=== PATIENT | male | born 1985 | race Caucasian/White ===

== ENCOUNTER 2020-03-12 09:30 | Emergency (ER) | payer SELFPAY ==
[~2020-03-12] VITALS: Ht 165 cm; Wt 92.8 kg
[2020-03-12 10:18] VITALS: BP 157/110
[2020-03-12] MEDS ORDERED: TETRACAINE 0.5% OPHTH SOLN 4 ML BTL (SINGLE DOSE ONLY) OU ONE (10:30)
[2020-03-12] MEDS ORDERED: NS 100 ML (IVPB) BAG IV ONE ×2 (10:30→10:45)
[2020-03-12] MEDS ORDERED: HOLD METFORMIN - RECEIVED CONTRAST 20 ML VIAL IV SCH ×2 (10:30→10:45)
[2020-03-12] MEDS ORDERED: IOHEXOL 350 MG/ML 100 ML (OMNIPAQUE 350) VIAL IV ONE ×2 (10:30→10:45)
[2020-03-12 10:31] LABS: BASOPHILS % (AUTO) 1 % (0-10); EOSINOPHILS # (AUTO) 0.1 10^3/uL (0.0-0.3); EOSINOPHILS % (AUTO) 1 % (0-10); HEMATOCRIT 46 % (40-54); HEMOGLOBIN 16.7 G/DL (13.3-17.7); LYMPHOCYTES # (AUTO) 2.7 X 10^3 (1.0-4.0); LYMPHOCYTES % (AUTO) 34 % (12-44); MEAN CORPUSCULAR HEMOGLOBIN 31 PG (25-34); MEAN CORPUSCULAR HGB CONC 37 G/DL (32-36); MEAN CORPUSCULAR VOLUME 84 FL (80-99); MEAN PLATELET VOLUME 10.5 FL (7.4-10.4); MONOCYTES # (AUTO) 0.6 X 10^3 (0.0-1.0); MONOCYTES % (AUTO) 7 % (0-12); NEUTROPHILS # (AUTO) 4.6 X 10^3 (1.8-7.8); NEUTROPHILS % (AUTO) 58 % (42-75); PLATELET COUNT 264 10^3/uL (130-400); WHITE BLOOD COUNT 7.9 10^3/uL (4.3-11.0)
[2020-03-12 10:34] LABS: ALBUMIN 4.6 GM/DL (3.2-4.5); CHLORIDE 99 MMOL/L (98-107); SODIUM 135 MMOL/L (135-145)
--- NOTE | 2020-03-12 10:34 | ED Neurological Problem ---
General Chief Complaint: General Problems/Pain Stated Complaint: LT EYE PAIN/ HIGH BLOOD PRESSURE Nursing Triage Note: AMB TO ROOM FROM [facility] WITH REPORTS THAT 1 MONTH AGO WAS LIFTING AND NOTICED L EYE GO BLURRY WITH REDNESS. IT WENT AWAY AND LAST THRUSDAY VISION IN L EYE COULD SEE SHAPES . WAS SENT BY [facility] FOR EYE AND B/P Nursing Sepsis Screen: No Definite Risk Source: patient Exam Limitations: no limitations History of Present Illness Date Seen by Provider: Mar 12, 2020 Time Seen by Provider: 10:09 Initial Comments Patient presents to ER by private conveyance from [facility] urgent care where he was seen for left eye blindness. He says this happened once before a month ago and lasted about 15 days and then spontaneously resolved. , 4 days ago he was lifting something heavy about 100 pounds and he lost the vision in his left eye again. It has not resolved yet. He can see light and are conveyed blurry shapes in his left eye. Right eye is normal. He does not use corrective lenses. He does not follow with a primary care doctor for any reason. He does not have any known medical history. No significant family medical history. He does not take any medicines except for an occasional Tylenol he says. He denies recreational drugs or head trauma. [facility] urgent care called ahead and said he had a significantly elevated blood pressure 200/120. Allergies and Home Medications Allergies Coded Allergies: No Known Drug Allergies (Unverified , 03/12/20) Patient Home Medication List Home Medication List Reviewed: Yes Review of Systems Review of Systems Constitutional: No chills, No diaphoresis Eyes: See HPI, Blindness; Denies Blurred Vision Ears, Nose, Mouth, Throat: denies ear pain, denies ear discharge Respiratory: No cough, No short of breath Cardiovascular: No edema, No Hx of Intervention, No syncope Gastrointestinal: No abdominal pain, No nausea, No vomiting Genitourinary: No discharge, No dysuria Musculoskeletal: No back pain, No joint pain All Other Systems Reviewed Negative Unless Noted: Yes Past Xirjhij-Mmwizx-Opycma Hx Patient Social History Alcohol Use: Denies Use Recreational Drug Use: No Smoking Status: Never a Smoker Recent Foreign Travel: No Contact w/Someone Who Travel: No Recent Infectious Disease Expo: No Past Medical History Surgeries: No Respiratory: No Cardiac: No Neurological: No Genitourinary: No Gastrointestinal: No Musculoskeletal: No Endocrine: No HEENT: No Cancer: No Psychosocial: No Integumentary: No Physical Exam Vital Signs Vital Signs - First Documented 03/12/20 03/12/20 09:38 10:18 Temp 36.7 Pulse 100 Resp 18 B/P (MAP) 200/120 (146) Pulse Ox 97 O2 Delivery Room Air Capillary Refill : Less Than 3 Seconds Height, Weight, BMI Height: '" Weight: lbs. oz. kg; 34.00 BMI Method: General Appearance: WD/WN, no apparent distress HEENT: pharynx normal, other (pupil 3 mm on the left sluggish and 4 mm brisk on the right. Normal right funduscopic exam. 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, no motor/sensory deficits, alert, normal mood/affect, oriented x 3 Crainal Nerves: normal hearing, normal speech, PERRL Coordination/Gait: normal finger to nose, normal gait Motor/Sensory: no motor deficit, no sensory deficit Skin: normal color, warm/dry Progress/Results/Core Measures Results/Orders Lab Results Laboratory Tests Test 03/12/20 09:54 Range/Units White Blood Count 7.9 4.3-11.0 10^3/uL Red Blood Count 5.43 4.35-5.85 10^6/uL Hemoglobin 16.7 13.3-17.7 G/DL Hematocrit 46 40-54 % Mean Corpuscular Volume 84 80-99 FL Mean Corpuscular Hemoglobin 31 25-34 PG Mean Corpuscular Hemoglobin Concent 37 H 32-36 G/DL Red Cell Distribution Width 12.9 10.0-14.5 % Platelet Count 264 130-400 10^3/uL Mean Platelet Volume 10.5 H 7.4-10.4 FL Neutrophils (%) (Auto) 58 42-75 % Lymphocytes (%) (Auto) 34 12-44 % Monocytes (%) (Auto) 7 0-12 % Eosinophils (%) (Auto) 1 0-10 % Basophils (%) (Auto) 1 0-10 % Neutrophils # (Auto) 4.6 1.8-7.8 X 10^3 Lymphocytes # (Auto) 2.7 1.0-4.0 X 10^3 Monocytes # (Auto) 0.6 0.0-1.0 X 10^3 Eosinophils # (Auto) 0.1 0.0-0.3 10^3/uL Basophils # (Auto) 0.0 0.0-0.1 10^3/uL Prothrombin Time 13.3 12.2-14.7 SEC INR Comment 1.0 0.8-1.4 Activated Partial Thromboplast Time 28 24-35 SEC D-Dimer 0.37 0.00-0.49 UG/ML Sodium Level 135 135-145 MMOL/L Potassium Level 4.0 3.6-5.0 MMOL/L Chloride Level 99 98-107 MMOL/L Carbon Dioxide Level 25 21-32 MMOL/L Anion Gap 11 5-14 MMOL/L Blood Urea Nitrogen 8 7-18 MG/DL Creatinine 0.80 0.60-1.30 MG/DL Estimat Glomerular Filtration Rate > 60 BUN/Creatinine Ratio 10 Glucose Level 292 H 70-105 MG/DL Calcium Level 9.0 8.5-10.1 MG/DL Corrected Calcium 8.5-10.1 MG/DL Total Bilirubin 0.8 0.1-1.0 MG/DL Aspartate Amino Transf (AST/SGOT) 24 5-34 U/L Alanine Aminotransferase (ALT/SGPT) 39 0-55 U/L Alkaline Phosphatase 122 40-136 U/L Troponin I < 0.028 <0.028 NG/ML Total Protein 8.2 6.4-8.2 GM/DL Albumin 4.6 H 3.2-4.5 GM/DL My Orders Orders - DAYRON MARTÍNEZ Cbc With Automated Diff (03/12/20 10:25) Protime With Inr (03/12/20 10:25) Partial Thromboplastin Time (03/12/20 10:25) Comprehensive Metabolic Panel (03/12/20 10:25) Fibrin Degradation Products (03/12/20 10:25) Troponin I (03/12/20 10:25) Chest 1 View, Ap/Pa Only (03/12/20 10:25) Ekg Tracing (03/12/20 10:25) Nothing By Mouth (03/12/20 Lunch) Ed Iv/Invasive Line Start (03/12/20 10:25) Vital Signs Stroke Patient Q15M (03/12/20 10:25) O2 (03/12/20 10:25) Monitor-Rhythm Ecg Trace Only (03/12/20 10:25) Dysphagia Screening Tool (03/12/20 10:25) Ct Angio Head/Neck (03/12/20 10:25) Tetracaine 0.5% Ophth Anita Sdv (Tetracai (03/12/20 10:30) Iohexol Injection (Omnipaque 350 Mg/Ml 1 (03/12/20 10:30) Received Contrast (Hold Metformin- Contr (03/12/20 10:30) Ns (Ivpb) (Sodium Chloride 0.9% Ivpb Bag (03/12/20 10:30) Iohexol Injection (Omnipaque 350 Mg/Ml 1 (03/12/20 10:45) Received Contrast (Hold Metformin- Contr (03/12/20 10:45) Sodium Chloride Flush (Catheter Flush Sy (03/12/20 10:45) Ns (Ivpb) (Sodium Chloride 0.9% Ivpb Bag (03/12/20 10:45) Medications Given in ED Current Medications Medications Dose Ordered Sig/Sherine Route Start Time Stop Time Status Last Admin Dose Admin Iohexol 75 ml ONCE ONCE IV 03/12/20 10:45 03/12/20 10:46 DC 03/12/20 11:21 75 ML Sodium Chloride 10 ml NEEDED PRN IV 03/12/20 10:45 03/12/20 11:21 10 ML Sodium Chloride 100 ml ONCE ONCE IV 03/12/20 10:45 03/12/20 10:46 DC 03/12/20 11:21 80 ML Tetracaine HCl 4 ml ONCE ONCE OU 03/12/20 10:30 03/12/20 10:31 DC 03/12/20 10:40 4 ML Vital Signs/I&O 03/12/20 03/12/20 09:38 10:18 Temp 36.7 Pulse 100 83 Resp 18 18 B/P (MAP) 200/120 (146) 157/110 (126) Pulse Ox 97 O2 Delivery Room Air Room Air Blood Pressure Mean: 126 Progress Progress Note #1: Time: 10:33 Progress Note 1 month of waxing and waning visual acuity on the left eye. We'll get a selling eye test for visual acuity. Plan to do tomography. We'll get a CT angiogram of the head and neck to rule out stroke, tumor etc. Suspect with his hypertension he could have caused a retinal attachment. If we can rule out these other issues in the ER then we can consult with ophthalmology. Progress Note #2: Time: 12:24 Progress Note Plan to give him 5 mg Levemir times one and put him on amlodipine for his hypertension. He has an appointment in the morning with Dr. Mansfield at 9:30. Initial ECG Impression Date: Mar 12, 2020 Initial ECG Impression Time: 10:30 Initial ECG Rate: 82 Initial ECG Rhythm: Normal Sinus Initial ECG Intervals: Normal Initial ECG Impression: Normal, Nonspecific Changes Initial ECG Comparisson: No Previous ECG Available Comment Normal sinus rhythm with physiologic ST elevation but no clinically relevant ST elevation or depression. Diagnostic Imaging Diagonstic Imaging: Xray Plain Films/CT/US/NM/MRI: chest (1v) Comments NAME: ZOEYNAN A.C. Moore REC#: [id number] PT STATUS: REG ER : 1985 PHYSICIAN: DAYRON MARTÍNEZ MD ADMIT DATE: 03/12/20/ER Draft Date of Exam:03/12/20 CHEST 1 VIEW, AP/PA ONLY INDICATION: High blood pressure. TIME OF EXAM: 11:29 AM No prior studies are available for comparison. FINDINGS: The heart size is normal. The pulmonary vascularity is unremarkable. The lungs are clear. No infiltrate, effusion or pneumothorax is detected. IMPRESSION: No acute cardiopulmonary process is detected. Dictated on workstation # [id number] Dict: 03/12/20 1130 Trans: 03/12/20 1132 [id number] Interpreted by: SHAMEKA MAXWELL MD Electronically signed by: Reviewed: Reviewed by Me Diagonstic Imaging: CT Plain Films/CT/US/NM/MRI: head (neck angiogram) Comments [facility] [place] NAME: NAN GREER A.C. Moore REC#: [id number] PT STATUS: REG ER : 1985 PHYSICIAN: DAYRON MARTÍNEZ MD ADMIT DATE: 03/12/20/ER Draft Date of Exam:03/12/20 CT ANGIO HEAD/NECK CLINICAL INDICATION: Patient has high blood pressure, left eye red, and vision issues. Patient has some headaches. EXAMS: 1. Head CT with and without IV contrast. Auto Exposure Controls were utilized during the CT exam to meet ALARA standards for radiation dose reduction. 2. CT angiogram of the head and neck performed with 100 cc of Omnipaque 350 IV contrast. Sagittal and coronal MIP reformations were created for better visualization of vascular anatomy. COMPARISON: None. FINDINGS: HEAD CT: There is no evidence of acute cerebral infarct, intracranial hemorrhage, or gross mass effect. There is no abnormal IV contrast enhancement. There is a linear area of thickening with similar density of chew matter extending across the right frontal lobe region of the centrum semiovale toward the right lateral ventricle. It is possible that this may represent heterotopic chew matter versus closed-loop schizencephaly. Otherwise, the remainder of the brain parenchyma is unremarkable. The brain parenchymal volume appears appropriate for patient's age. There is normal chew-white matter distinction. There is no significant midline shift or herniation. There is no evidence of hydrocephalus. The basal cisterns are unremarkable. The skull, extracranial soft tissue, and orbits are unremarkable. There is minimal mucosal thickening involving both maxillary sinuses and ethmoid sinus. The temporal bones show no significant abnormality. CT ANGIOGRAM: There is dense contrast seen within the left subclavian vein, innominate vein, and superior vena cava which causes streak artifact obscuring portions of the aortic arch and proximal great vessels. There is motion artifact from patient body habitus with streak artifact slightly obscuring portions of the bilateral common carotid arteries. The visualized portions of the bilateral subclavian artery, brachiocephalic artery, bilateral common carotid arteries, bilateral cervical ICA, and bilateral ECA are unremarkable as visualized. The bilateral cervical vertebral arteries are patent. A slightly dominant left cervical vertebral artery is seen. The bilateral PICAs, intradural vertebral arteries, basilar artery, bilateral superior cerebellar arteries, and bilateral TAILING HAND are patent. A slightly small in caliber post PICA intradural right vertebral artery is seen. There is a small area of vascular fenestration of the proximal basilar artery. The petrous, cavernous, and supraclinoid ICA are patent. The bilateral ACAs and their distal branches are patent. The anterior communicating artery is patent. The bilateral MCAs and their distal branches are patent. The dural venous sinuses are patent. The neck soft tissue structures are unremarkable. The visualized upper lung bills are clear. The cervical spine shows no significant abnormality. IMPRESSION: 1. There is no evidence of an acute intracranial process. There is no abnormal IV contrast enhancement. 2. Unremarkable CT angiogram of the [place] of [place] and neck vascular structures. 3. There is a linear area of density, similar to chew matter, involving the right frontal lobe centrum semiovale region extending toward the right lateral ventricle. These findings are most likely congenital and may represent cleft-like cortical dysplasia, heterotopic chew matter, versus closed lip schizencephaly. If this is not a known finding, then a nonemergent MRI of the brain with and without contrast (seizure protocol for high-resolution imaging) is suggested for further evaluation. This finding may be incidental if the patient has no history of seizures. 4. Mild paranasal sinus disease; otherwise, unremarkable CT scan of the brain. Dictated on workstation # [id number] Dict: 03/12/20 1129 Trans: 03/12/20 1153 [id number] Interpreted by: SILVERIO LINK MD Electronically signed by: Reviewed: Reviewed by Me Consults : Consulting Physician: ALVARO MANSFIELD OD Consults Notes Discussed the case with Dr. Mansfield, and he says the patient will need an extensive workup and will likely see him at 9:30 in the morning in his office. Give the patient the clinic number case he has any problems overnight but call the on-call doctor. Departure Impression Primary Impression: Hypertensive retinopathy of left eye Additional Impressions: Hypertension Qualified Codes: I10 - Essential (primary) hypertension Diabetes type 2, uncontrolled Qualified Codes: E11.65 - Type 2 diabetes mellitus with hyperglycemia Disposition: 01 HOME, SELF-CARE Condition: Stable Departure-Patient Inst. Decision time for Depature: 12:20 Referrals: [facility] [place] ALVARO MANSFIELD OD Patient Instructions: High Blood Pressure (DC), Diabetic Retinopathy Add. Discharge Instructions: Tomorrow morning at [address] Mansfield's office. After that call for an appointment with a primary care doctor to follow up your high blood pressure and diabetes. Take the amlodipine one tablet daily for high blood pressure. If you have any problems throughout the night you can call Dr. Mansfield's office and their voicemail will direct you who to call. Alternatively you may return to the ER. All discharge instructions reviewed with patient and/or family. Voiced understanding. Scripts Amlodipine Besylate (Amlodipine Besylate) 5 Mg Tablet 5 MG PO DAILY for 14 Days, #14 TAB 0 Refills Prov: DAYRON MARTÍNEZ 03/12/20 Work/School Note: Work Release Form Date Seen in the Emergency Department: Mar 12, 2020 Return to Work: Mar 14, 2020 Restrictions: No Restrictions Copy Copies To 1: [facility]/[place]; ALVARO MANSFIELD OD, TITUS J Mar 12, 2020 10:34
[2020-03-12 10:36] LABS: GLUCOSE 292 MG/DL (70-105)
[2020-03-12 10:37] LABS: TOTAL PROTEIN 8.2 GM/DL (6.4-8.2)
[2020-03-12 10:38] LABS: CARBON DIOXIDE 25 MMOL/L (21-32)
[2020-03-12 10:39] LABS: BILIRUBIN,TOTAL 0.8 MG/DL (0.1-1.0); FIBRIN DEGRADATION PRODUCTS 0.37 UG/ML (0.00-0.49); PROTHROMBIN TIME PATIENT 13.3 SEC (12.2-14.7)
[2020-03-12 10:40] LABS: ALKALINE PHOSPHATASE 122 U/L (40-136); GFR ESTIMATED > 60
[2020-03-12 10:41] LABS: BUN/CREATININE RATIO 10
[2020-03-12 10:43] LABS: ALANINE AMINOTRANSFERASE 39 U/L (0-55)
[2020-03-12] MEDS ORDERED: CATHETER FLUSH 10 ML SYR IV PRN (10:45)
--- NOTE | 2020-03-12 10:55 | NUR ---
HAD PATIENT ATTEMPT TO READ EYE CHART UNABALE TO SEE OUT OF L EYE AND UNABLE TO READ OUT OF R EYE.
--- NOTE | 2020-03-12 11:32 | Diagnostic Imaging Report ---
INDICATION: High blood pressure. TIME OF EXAM: 11:29 AM No prior studies are available for comparison. FINDINGS: The heart size is normal. The pulmonary vascularity is unremarkable. The lungs are clear. No infiltrate, effusion or pneumothorax is detected. IMPRESSION: No acute cardiopulmonary process is detected. Dictated by: Dictated on workstation # [id number]
--- NOTE | 2020-03-12 11:53 | Diagnostic Imaging Report ---
CLINICAL INDICATION: Patient has high blood pressure, left eye red, and vision issues. Patient has some headaches. EXAMS: 1. Head CT with and without IV contrast. Auto Exposure Controls were utilized during the CT exam to meet ALARA standards for radiation dose reduction. 2. CT angiogram of the head and neck performed with 100 cc of Omnipaque 350 IV contrast. Sagittal and coronal MIP reformations were created for better visualization of vascular anatomy. COMPARISON: None. FINDINGS: HEAD CT: There is no evidence of acute cerebral infarct, intracranial hemorrhage, or gross mass effect. There is no abnormal IV contrast enhancement. There is a linear area of thickening with similar density of chew matter extending across the right frontal lobe region of the centrum semiovale toward the right lateral ventricle. Otherwise, the remainder of the brain parenchyma is unremarkable. The brain parenchymal volume appears appropriate for patient's age. There is normal chew-white matter distinction. There is no significant midline shift or herniation. There is no evidence of hydrocephalus. The basal cisterns are unremarkable. The skull, extracranial soft tissue, and orbits are unremarkable. There is minimal mucosal thickening involving both maxillary sinuses and ethmoid sinus. The temporal bones show no significant abnormality. CT ANGIOGRAM: There is dense contrast seen within the left subclavian vein, innominate vein, and superior vena cava which causes streak artifact obscuring portions of the aortic arch and proximal great vessels. There is motion artifact from patient body habitus with streak artifact slightly obscuring portions of the bilateral common carotid arteries. The visualized portions of the bilateral subclavian artery, brachiocephalic artery, bilateral common carotid arteries, bilateral cervical ICA, and bilateral ECA are unremarkable as visualized. The bilateral cervical vertebral arteries are patent. A slightly dominant left cervical vertebral artery is seen. The bilateral PICAs, intradural vertebral arteries, basilar artery, bilateral superior cerebellar arteries, and bilateral CIRCUITRY NEGATIVE INSPECTOR are patent. A slightly small in caliber post PICA intradural right vertebral artery is seen. There is a small area of vascular fenestration of the proximal basilar artery. The petrous, cavernous, and supraclinoid ICA are patent. The bilateral ACAs and their distal branches are patent. The anterior communicating artery is patent. The bilateral MCAs and their distal branches are patent. The dural venous sinuses are patent. The neck soft tissue structures are unremarkable. The visualized upper lung bills are clear. The cervical spine shows no significant abnormality. IMPRESSION: 1. There is no evidence of an acute intracranial process. There is no abnormal IV contrast enhancement. 2. Unremarkable CT angiogram of the [place] of [place] and neck vascular structures. 3. There is a linear area of density, similar to chew matter, involving the right frontal lobe centrum semiovale region extending toward the right lateral ventricle. These findings are most likely congenital and may represent cortical dysplasia, heterotopic chew matter, versus closed lip schizencephaly. If this is not a known finding, then a nonemergent MRI of the brain with and without contrast (seizure protocol for high-resolution imaging) is suggested for further evaluation. This finding may be incidental if the patient has no history of seizures. 4. Mild paranasal sinus disease; otherwise, unremarkable CT scan of the brain. Dictated by: Dictated on workstation # [id number]
[2020-03-12] MEDS ORDERED: AMLO5TAB9 PO (12:30)
[2020-03-12 12:50] VITALS: BP 172/114
--- NOTE | 2020-03-12 12:50 | NUR ---
PATIENT VOICED UNDERSTANDING OF DISCHARGE INSTRUCTION WITH DESK OPERATOR
== END 2020-03-12 12:49 | disposition home or self-care (01) ==
LOC: ER 09:36
DX: H35.032 Hypertensive retinopathy, left eye (principal); I10 Essential (primary) hypertension; E11.65 Type 2 diabetes mellitus with hyperglycemia
CPT/HCPCS: 36415; 70496; 70498; 71045; 80053; 84484; 85025; 85379; 85610; 85730; 93005